=== PATIENT | female | born 1955 | race Caucasian/White ===

== ENCOUNTER 2019-12-08 08:40 | Emergency (ER) | payer OTHER, MEDICARE ==
[~2019-12-08] VITALS: Ht 154.9 cm; Wt 77.3 kg
[~2019-12-08 08:40] MED LIST: HYDR-4353 PO; LIDOcaine 1% W/epiNEPHrine 1:200,000 10ml vial ONE; METF500T PO; METO50TA16
[2019-12-08] MEDS ORDERED: LIDOcaine 4% (40 mg/ml) topical solution 50ml TP ONE (09:25)
[2019-12-08] MEDS ORDERED: LIDOcaine/epinephrine/tetracaine TOPICAL sol 3 ML syringe TOP ONE (09:25)
[2019-12-08] MEDS ORDERED: LIDOcaine 1% W/epiNEPHrine 1:200,000 10ml vial IJ ONE (09:25)
--- NOTE | 2019-12-08 10:35 | NUR ---
at beside for I & D vaginal abcess, pt tolerated procedure well
[2019-12-08 10:39] VITALS: BP 135/79
[2019-12-08] MEDS ORDERED: CEPH500C5 PO (10:45)
[2019-12-08] MEDS ORDERED: SULF1TAB49 PO (10:45)
== END 2019-12-08 10:59 | disposition home or self-care (01) ==
LOC: ER 08:40
DX: N76.0 Acute vaginitis (principal); Z90.710 Acquired absence of both cervix and uterus; Z79.899 Other long term (current) drug therapy
CPT/HCPCS: 56405; 87070; 87077; 87186; 99284

== ENCOUNTER 2020-01-06 07:46 | Outpatient (CLI) | payer OTHER, MEDICARE ==
[~2020-01-06] VITALS: Ht 152.4 cm; Wt 77.2 kg
[2020-01-06] VITALS (8 sets, daily range): BP systolic 120–143; BP diastolic 61–79
[~2020-01-06 07:46] MED LIST changes: -LIDOcaine 1% W/epiNEPHrine 1:200,000 10ml vial ONE
[2020-01-06] MEDS ORDERED: nitroGLYCERIN 0.4mg SUBLingual tab SL PRN (08:30)
[2020-01-06] MEDS ORDERED: regadenoson 0.4mg/5ml syringe IV ONE (08:30)
[2020-01-06] MEDS ORDERED: aminophylline 250mg/10ml inj. IV PRN (08:30)
[2020-01-06] MEDS ORDERED: normal saline 500ml IV soln 500 ML IV ONE (08:30)
== END 2020-01-06 23:59 | disposition home or self-care (01) ==
LOC: RAD 07:46
PROVIDERS: ATTEND Internal Medicine Cardiovascular Disease
DX: Z01.810 Encounter for preprocedural cardiovascular examination (principal); I10 Essential (primary) hypertension; M54.2 Cervicalgia; M54.5 Low back pain
CPT/HCPCS: 78452; 93017; A9500; J0280; J2785; J7040

== ENCOUNTER 2022-12-02 08:16 | Emergency (ER) | payer OTHER, MEDICARE ==
[~2022-12-02] VITALS: Ht 145.4 cm; Wt 78.4 kg
[2022-12-02 08:34] VITALS: BP 166/96; PULSE 102; RESP 18; TEMP 96.9; O2SAT 98
--- NOTE | 2022-12-02 10:32 | NUR ---
pt fell flat on her chest 2-3 weeks ago pt states she is in extreme pain when she lifts her right arm pain radiates though right side of chest and right shoulder when liftinng arm
[2022-12-02] MEDS ORDERED: METF-900 (11:08)
[2022-12-02] MEDS ORDERED: LISI1POW (11:08)
[2022-12-02] MEDS ORDERED: ketorolac trometh inj. 60 MG/2 ML VIAL IM ONE (12:00)
== END 2022-12-02 14:02 | disposition left against medical advice (07) ==
LOC: ER 08:16
DX: M25.511 Pain in right shoulder (principal); X58.XXXA Exposure to other specified factors, initial encounter; Y93.89 Activity, other specified; Y92.89 Other specified places as the place of occurrence of the external cause; Y99.8 Other external cause status
CPT/HCPCS: 73030; 96372; 99284; J1885; 99281; 99285; A4565